=== PATIENT | male | born 1960 | race Caucasian/White ===

== ENCOUNTER 2019-03-05 15:47 | Emergency (ER) | payer MEDICAID ==
[~2019-03-05] VITALS: Ht 177.8 cm; Wt 77.1 kg
[~2019-03-05 15:47] MED LIST: OMEP20TA20 PO
--- NOTE | 2019-03-05 15:57 | NUR ---
DANILO VEGA AT BEDSIDE FOR MSE.
[2019-03-05] MEDS ORDERED: TDAP DIPH,PERTUSS,TET VAC/PF 0.5 ML DISP.SYRIN IM ONE ×2 (16:00→16:04)
[2019-03-05] MEDS ORDERED: NEOMY/BACITRA/POLYMYXIN B OINT UD PACKET TP ONE ×2 (16:00→16:04)
--- NOTE | 2019-03-05 16:08 | NUR ---
PT PRESENTS W/ MULTIPLE SUPERFICIAL SCRATCHES ON BILATERAL THIGHS FROM A DOG BITE. SCRATCHES CLEANSED W/ NS AND TRIPLE ANTIBIOTIC OINTMENT APPLIED, COVERED W/ CLEAN BANDAGE.
[2019-03-05 16:16] VITALS: BP 122/73
--- NOTE | 2019-03-05 16:16 | NUR ---
Patient discharged to home in stable conditon. Written and verbal after care instructions given. Patient verbalizes understanding of instructions. ALL BELONGINGS W/ PT. PT SELF-AMBULATED W/O DIFFICULTY.
== END 2019-03-05 16:22 | disposition home or self-care (01) ==
LOC: ER 15:49
DX: S81.852A Open bite, left lower leg, initial encounter (principal); S81.851A Open bite, right lower leg, initial encounter; E11.9 Type 2 diabetes mellitus without complications; F17.200 Nicotine dependence, unspecified, uncomplicated; Z79.899 Other long term (current) drug therapy; W54.0XXA Bitten by dog, initial encounter; Y93.89 Activity, other specified; Y92.89 Other specified places as the place of occurrence of the external cause; Y99.8 Other external cause status
CPT/HCPCS: 90715; A4217; A4663